=== PATIENT | female | born 1945 | race Caucasian/White ===

== ENCOUNTER → 2021-02-26 | Outpatient (CLI) | payer OTHER, BC ==
[~2021-02-26] MED LIST: ACYCLOVIR 400400 MG PO; BENEFIBER1 EAC1 PO; BUTALBIT-ACETA1 EACH PO; CELECOXIB200 MG PO; CHILDREN'S ZYRT10 M1 PO; CINNAMON PLUS1 EACH PO; CITRACAL + D M1 EACH PO; COQ-10100 MG PO; DAILY MULTIVIT1 EAC2 PO; EVISTA60 MG PO; FLEXERIL PO; GLUCOSAMINE CH1 EA10 PO; MAGNESIUM250 M1 PO; MONTELUKAST SODI4 M1 PO; NATURAL LUTEIN20 MG PO; OLOPATADINE HC2.5 ML NASAL; OMEPRAZOLE 20 M20 M1 PO; PROAIR HFA8.5 GM INH; REFRESH CLASSI1 EACH EA. EYE; SUPER B COMPLE1 EAC2 PO; SYMBICORT160 MCG/4. INH; TRIAMTERENE/HCT1 CA1 PO; VAZALORE81 MG PO; VITAMIN C1000 MG PO; VITAMIN D310 MCG PO
[2021-02-26 11:45] VITALS: BP 109/40
--- NOTE | 2021-02-26 14:00 | NUR ---
PT HERE FOR FIRST DOSE DAPTOMYCIN FOR PROSTHETIC JOINT INFECTION OF LEFT KNEE. EXISTING PICC LINE IN [place]. DRESSING INTACT. FLUSHES AND ASPIRATES WELL. PT HAD BEEN RECEIVING HOME INFUSIONS OF CEFTRIAXONE, BUT WAS EXPERIENCING NAUSEA. HOME HEALTH IS TO COME TOMORROW TO SET HER UP WITH DAPTOMYCIN AND DO HER WEEKLY DRESSING CHANGE. HISTORY AND MEDICATIONS REVIEWED.
== END ==
LOC: OPONC 10:36
PROVIDERS: ATTEND Specialist
DX: T84.54XA Infection and inflammatory reaction due to internal left knee prosthesis, initial encounter (principal); Y79.2 Prosthetic and other implants, materials and accessory orthopedic devices associated with adverse incidents; Y92.89 Other specified places as the place of occurrence of the external cause
CPT/HCPCS: 95000